=== PATIENT | female | born 1980 | race Hispanic/Latino ===

== ENCOUNTER 2016-11-15 10:41 | Day surgery (SDC) | payer OTHER ==
--- NOTE | 2016-11-15 10:25 | Short Stay Summary ---
Short Stay Documentation Date of service: 11/15/16 - History H&P: obtained from office - Allergies and Medications Current Medications: Allergies No Known Allergies Allergy (Verified 11/09/16 12:04) Home Medications Medication Instructions Recorded Confirmed Last Taken Type Lactobacillus Acidophilus 1 mg PO DAILY 11/09/16 11/09/16 Unknown History [Acidophilus Probiotic] Active Medications Cefazolin Sodium (Ancef/Sterile Water 2 Gm/20 Ml) 2 gm IV PREOP NR Stop: 11/15/16 23:59 - Brief post op/procedure progress note Date of procedure: 11/15/16 Pre-op diagnosis: Left URET stone 20mm Post-op diagnosis: same Procedure: LEFT URS, laser, sbe, stent 6x26 Anesthesia: GETA Findings: large left uret stone, w/ evidence previous attempts at laser UPJ stenosed Surgeon: JERE GROVE Estimated blood loss: minimal Condition: stable - Hospital course Hospital course: [email or web address] - Disposition Condition at discharge: Good Disposition: DISCHARGED TO HOME OR SELFCARE Short Stay Discharge Plan Activity: advance as tolerated Diet: advance as tolerated Additional Instructions: Increase PO fluid No straining Follow-up with doctor as ordered Call to schedule an appointment Strain all urine Follow up with: ALEXANDER MORRELL MD [Staff Physician] - 7 Days Forms: Outpatient Surgery DC Inst.
[~2016-11-15 10:41] MED LIST: ANCEF/STERILE WATER 2 GM/20 ML IV NR
[2016-11-15 11:43] LABS: Hemoglobin 11.8 gm/dl (10.1-14.3)
[2016-11-15] MEDS ORDERED: DIPRIVAN 10 MG/ML IV ONE (11:52)
[2016-11-15] MEDS ORDERED: DILAUDID ONE (11:52)
[2016-11-15] MEDS ORDERED: LACTATED RINGERS 1,000 ML ONE (12:09)
--- NOTE | 2016-11-15 12:12 | Anesthesia Consultation ---
Anesthesia Consult and Med Hx Date of service: 11/15/16 - Airway Anesthetic Teeth Evaluation: Good ROM Head & Neck: Adequate Mental/Hyoid Distance: Adequate Mallampati Class: Class III Intubation Access Assessment: Probably Good - Pulmonary Exam CTA: Yes - Cardiac Exam Cardiac Exam: RRR - Pre-Operative Health Status ASA Pre-Surgery Classification: ASA2 Proposed Anesthetic Plan: General - Pulmonary Hx Smoking: No Hx Sleep Apnea: No (MARTHA PRE SCREEN LOW RISK) - Cardiovascular System Hx Hypertension: No - Gastrointestinal Hx Gastroesophageal Reflux Disease: Yes - Hematic Hx Anemia: Yes (RESOLVED) - Other Systems Hx Cancer: No Hx Obesity: Yes
--- NOTE | 2016-11-15 12:12 | Anesthesia Day of Surgery ---
Anesthesia Day of Surgery - Day of Surgery Patient Examined: Yes Patient H&P Reviewed: Yes Patient is NPO: Yes
[2016-11-15] MEDS ORDERED: DECADRON ONE (12:29)
[2016-11-15] MEDS ORDERED: TORADOL ONE (12:53)
[2016-11-15] MEDS ORDERED: XYLOCAINE MPF 2% ONE (12:53)
[2016-11-15] MEDS ORDERED: LACTATED RINGERS 1,000 ML IV SCH (13:00)
[2016-11-15] MEDS ORDERED: VERSED IV NR (13:00)
[2016-11-15] MEDS ORDERED: DECADRON 12 MG in NACL 0.9% 50 ML IV NR (13:00)
[2016-11-15] MEDS ORDERED: ZOFRAN IV NR (13:00)
[2016-11-15] MEDS ORDERED: PEPCID IV NR (13:00)
[2016-11-15] MEDS ORDERED: DEMEROL ONE (13:46)
[2016-11-15] MEDS ORDERED: DEMEROL IV PRN (13:57)
[2016-11-15] MEDS ORDERED: BENADRYL IV ONE (15:19)
[2016-11-15] MEDS ORDERED: DILAUDID IV PRN (15:25)
--- NOTE | 2016-11-15 15:32 | Post Operative Note ---
Pre-op diagnosis: right RENAL stone 11mm Post-op diagnosis: same Findings: good vis good frag Procedure: RT RENAL ESWL Anesthesia: GETA Surgeon: JERE GROVE Estimated blood loss: minimal Pathology: none Disposition: PACU
[2016-11-15] MEDS ORDERED: NORCO 5/325 PO PRN (17:01)
[2016-11-15 18:49] VITALS: BP 120/22
--- NOTE | 2016-11-23 11:08 | Operative Report ---
PREOPERATIVE DIAGNOSIS: Right renal stone, 11 mm. POSTOPERATIVE DIAGNOSIS: Right renal stone, 11 mm. ANESTHESIA: General. SURGEON: Carlos Young MD. ESTIMATED BLOOD LOSS: Minimal. COMPLICATIONS: None. FINDINGS: Good fragmentation at the end of the procedure. CLINICAL INDICATIONS: The patient was counseled on RCBA, antibiotics, SCDs, desired to proceed, understood the risks, benefits, complications, and alternatives. Had antibiotics and SCDs ordered. DESCRIPTION OF PROCEDURE: The patient transferred to the OR suite in supine position, anesthesia, prepped and draped in our standard fashion, placed in the supine position. Biplanar fluoroscopy was used to target the stone with an F2. There was good visualization. A total of 2500 shocks were delivered with intermittent repositioning done as necessary. At the end of the procedure, there was a significantly decreased density. We could not see the stone. The patient was awakened and transferred to the PACU in good and stable condition. JOB# [id number] ATS/NTS
== END 2016-11-15 17:55 | disposition home or self-care (01) ==
LOC: OR 10:41
PROVIDERS: ATTEND Urology
DX: N20.0 Calculus of kidney (principal); N39.0 Urinary tract infection, site not specified; K21.9 Gastro-esophageal reflux disease without esophagitis; D64.9 Anemia, unspecified; E66.9 Obesity, unspecified; Z68.34 Body mass index [BMI] 34.0-34.9, adult; Z98.890 Other specified postprocedural states; Z90.49 Acquired absence of other specified parts of digestive tract
CPT/HCPCS: 36415; 50590; 81025; 85014; 85018; J0690; J1100; J1170; J1200; J1885; J2175; J2250; J2405; J2704; J7120